=== PATIENT | male | born 1965 | race Two or more races ===

== ENCOUNTER 2024-04-09 18:28 | Inpatient (IN) | payer OTHER ==
[~2024-04-09] VITALS: Ht 172.7 cm; Wt 70.8 kg
[2024-04-09] MEDS ORDERED: ZESTRIL10 M1 PO (19:42)
[2024-04-09] MEDS ORDERED: TAMS0.4C PO (19:42)
[2024-04-09 20:46] LABS: HEMATOCRIT 28.7 % (39.0-48.0); HEMOGLOBIN 9.6 g/dL (13-16.00); MEAN CELL VOLUME 90.5 fL (80.0-100.00); MEAN CORPUSCULAR HEMOGLOBIN 30.4 pg (27.00-32.0); MEAN CORPUSCULAR HGB CONC 33.6 g/dl (32.0-36.0); PLATELET COUNT 323 K/uL (150-450); RED BLOOD COUNT 3.17 M/uL (4.00-6.00); RED CELL DISTRIBUTION WIDTH 19.1 % (11.5-14.5)
[2024-04-09 20:48] LABS: ERYTHROCYTE SEDIMENTATION RATE > 130 mm/hr
[2024-04-09 21:15] LABS: ALBUMIN 2.4 gm/dL (3.4-5.0); BILIRUBIN TOTAL 0.18 mg/dL (0.3-1.2); CALCIUM 9.2 mg/dL (8.5-10.1); CREATININE SERUM 0.96 mg/dL (0.70-1.30); GFR 79.9; POTASSIUM 3.52 mEq/L (3.5-5.1)
[2024-04-09 21:16] LABS: INR 1.08; PROTHROMBIN TIME 11.3 SECONDS (9.0-11.5)
[2024-04-09 21:19] LABS: PARTIAL THROMBOPLASTIN TIME 53.1 SECONDS (22.0-34.0)
[2024-04-09 21:21] LABS: C-REACTIVE PROTEIN 0.56 MG/DL (0.00-0.29); GLOBULINA 8.7 G/DL (2.4-3.5); TOTAL PROTEIN 11.1 gm/dL (6.4-8.2)
[2024-04-10] MEDS ORDERED: CEFTRIAXONE SODIUM 2,000 MG VIAL IV ONE (01:15)
[2024-04-10] MEDS ORDERED: AMOXICILLIN/POTASSIUM CLAV 875-125 TABLET PO SCH (01:19)
[2024-04-10] MEDS ORDERED: ACETAMINOPHEN WITH CODEINE 1 UDTAB TABLET PO ONE ×2 (02:00→11:30)
[2024-04-10] MEDS ORDERED: CEFTRIAXONE SODIUM 1,000 MG VIAL ONE (02:29)
[2024-04-10] MEDS ORDERED: FAMOTIDINE/PF 20 MG in 0.9 % SODIUM CHLORIDE 100 ML IV SCH (17:00)
[2024-04-10] MEDS ORDERED: SODIUM CHLORIDE 0.45 % 1,000 ML IV SCH (17:00)
[2024-04-10] MEDS ORDERED: PIPERACILLIN/TAZOBACTAM SODIUM 3.375 GM in 0.9 % SODIUM CHLORIDE 100 ML IV SCH (18:00)
[2024-04-10 20:34] LABS: INR 1.08; PROTHROMBIN TIME 11.3 SECONDS (9.0-11.5)
[2024-04-10 20:58] LABS: PARTIAL THROMBOPLASTIN TIME 47.1 SECONDS (22.0-34.0)
[2024-04-10] MEDS ORDERED: VANCOMYCIN HCL 1,000 MG VIAL IV SCH (21:07)
[2024-04-10] MEDS ORDERED: ENALAPRILAT DIHYDRATE 1.25 MG/ML VIAL IV PRN (22:15)
[2024-04-10] MEDS ORDERED: ACETAMINOPHEN 500 MG GEL..CAP PO PRN (22:15)
[2024-04-11] MEDS ORDERED: ACETAMINOPHEN WITH CODEINE 1 UDTAB TABLET PO PRN (11:30)
[2024-04-11] MEDS ORDERED: LISINOPRIL 10 MG TABLET PO SCH (17:00)
[2024-04-13 14:40] LABS: HEMATOCRIT 24.8 % (39.0-48.0); MEAN CELL VOLUME 91.7 fL (80.0-100.00); MEAN CORPUSCULAR HGB CONC 32.8 g/dl (32.0-36.0); PLATELET COUNT 301 K/uL (150-450); RED CELL DISTRIBUTION WIDTH 18.7 % (11.5-14.5)
[2024-04-13 14:41] LABS: HEMOGLOBIN 8.1 g/dL (13-16.00)
[2024-04-13 15:19] LABS: ALBUMIN 1.9 gm/dL (3.4-5.0); BILIRUBIN TOTAL 0.32 mg/dL (0.3-1.2); CALCIUM 9.6 mg/dL (8.5-10.1); CREATININE SERUM 0.96 mg/dL (0.70-1.30); GFR 79.9; GLOBULINA 6.7 G/DL (2.4-3.5); TOTAL PROTEIN 8.6 gm/dL (6.4-8.2)
[2024-04-13] MEDS ORDERED: VANCOMYCIN HCL 1,000 MG VIAL IR ONE ×2 (20:15→20:30)
[2024-04-15 13:35] LABS: HEMATOCRIT 26.8 % (39.0-48.0); MEAN CELL VOLUME 89.3 fL (80.0-100.00); MEAN CORPUSCULAR HEMOGLOBIN 29.9 pg (27.00-32.0); MEAN CORPUSCULAR HGB CONC 33.5 g/dl (32.0-36.0); PLATELET COUNT 295 K/uL (150-450); RED BLOOD COUNT 3.01 M/uL (4.00-6.00); RED CELL DISTRIBUTION WIDTH 17.3 % (11.5-14.5)
[2024-04-17 13:55] LABS: ALBUMIN 1.6 gm/dL (3.4-5.0); BILIRUBIN TOTAL 0.21 mg/dL (0.3-1.2); CREATININE SERUM 0.86 mg/dL (0.70-1.30); GFR 90.71; GLOBULINA 5.5 G/DL (2.4-3.5); POTASSIUM 4.04 mEq/L (3.5-5.1); TOTAL PROTEIN 7.1 gm/dL (6.4-8.2)
[2024-04-17 14:23] LABS: MEAN CELL VOLUME 92.2 fL (80.0-100.00); MEAN CORPUSCULAR HGB CONC 33.9 g/dl (32.0-36.0); PLATELET COUNT 291 K/uL (150-450); RED BLOOD COUNT 1.69 M/uL (4.00-6.00); RED CELL DISTRIBUTION WIDTH 16.6 % (11.5-14.5)
[2024-04-17 14:42] LABS: HEMATOCRIT 15.6 % (39.0-48.0); HEMOGLOBIN 5.3 g/dL (13-16.00); MEAN CORPUSCULAR HEMOGLOBIN 31.3 pg (27.00-32.0)
[2024-04-18] MEDS ORDERED: TRANEXAMIC ACID 1,000 MG in 0.9 % SODIUM CHLORIDE 100 ML IV NR (11:30)
[2024-04-18] MEDS ORDERED: 0.9 % SODIUM CHLORIDE 1,000 ML IV SCH (11:30)
[2024-04-18 12:43] LABS: MEAN CELL VOLUME 88.7 fL (80.0-100.00); MEAN CORPUSCULAR HGB CONC 33.5 g/dl (32.0-36.0); PLATELET COUNT 244 K/uL (150-450); RED BLOOD COUNT 1.78 M/uL (4.00-6.00)
[2024-04-18 12:45] LABS: HEMATOCRIT 15.8 % (39.0-48.0); MEAN CORPUSCULAR HEMOGLOBIN 29.7 pg (27.00-32.0)
[2024-04-18 12:47] LABS: INR 1.05
[2024-04-18 12:49] LABS: COL EPI 119 SECONDS (82-175)
[2024-04-18 12:49] LABS: MONONUCLEAR 29 %; POLYMORPHONUCLEAR 71 %; SYNOVIAL FLUID APPEARANCE TURBID; SYNOVIAL FLUID COLOR RED-BLOODY
[2024-04-18 12:50] LABS: PARTIAL THROMBOPLASTIN TIME 41.9 SECONDS (22.0-34.0)
[2024-04-18 12:52] LABS: ERYTHROCYTE SEDIMENTATION RATE 90 mm/hr
[2024-04-18 12:54] LABS: HEMOGLOBIN 5.3 g/dL (13-16.00)
[2024-04-18 14:40] LABS: C-REACTIVE PROTEIN 0.52 MG/DL (0.00-0.29)
[2024-04-18] MEDS ORDERED: PROMETHAZINE HCL 50 MG/ML AMPUL IM PRN (18:15)
[2024-04-18] MEDS ORDERED: MEPERIDINE HCL/PF 50 MG/ML VIAL IM PRN (18:15)
[2024-04-18] MEDS ORDERED: VANCOMYCIN HCL 1,000 MG VIAL IR ONE (22:30)
[2024-04-18] MEDS ORDERED: TRANEXAMIC ACID 100MG/1ML (1000MG) AMPUL IV ONE (22:30)
[2024-04-19] MEDS ORDERED: TAMSULOSIN HCL 0.4 MG CAP PO SCH (09:00)
[2024-04-19 09:10] LABS: HEMATOCRIT 26.4 % (39.0-48.0); MEAN CORPUSCULAR HEMOGLOBIN 29.3 pg (27.00-32.0); PLATELET COUNT 225 K/uL (150-450); RED BLOOD COUNT 3.07 M/uL (4.00-6.00); RED CELL DISTRIBUTION WIDTH 16.1 % (11.5-14.5)
[2024-04-19 09:53] LABS: ALBUMIN 1.7 gm/dL (3.4-5.0); BILIRUBIN TOTAL 0.42 mg/dL (0.3-1.2); CREATININE SERUM 0.87 mg/dL (0.70-1.30); GFR 89.51; GLOBULINA 5.4 G/DL (2.4-3.5); POTASSIUM 3.51 mEq/L (3.5-5.1); TOTAL PROTEIN 7.1 gm/dL (6.4-8.2)
[2024-04-19 09:57] LABS: INR 1.04; PROTHROMBIN TIME 10.9 SECONDS (9.0-11.5)
[2024-04-19 10:00] LABS: PARTIAL THROMBOPLASTIN TIME 42.4 SECONDS (22.0-34.0)
[2024-04-19] MEDS ORDERED: VITAMIN B COMPLEX/LYSINE 1 ML ML PO SCH (21:00)
[2024-04-20] MEDS ORDERED: LOSARTAN POTASSIUM 50 MG TABLET PO SCH (08:09)
[2024-04-20] MEDS ORDERED: AMLODIPINE BESYLATE 5 MG TABLET PO SCH (09:00)
[2024-04-20 13:07] LABS: kappa lambda r 197.85 (0.26-1.65); kappa light 1464.1 mg/L (3.3-19.4); lambda light 7.4 mg/L (5.7-26.3)
[2024-04-21 07:07] LABS: BETA-2-MICROGLOBULINA 2.3 mg/L (0.6-2.4)
[2024-04-21 11:08] LABS: a:g ratio 0.6 (0.7-1.7); alpha 1 g 0.3 g/dL (0.0-0.4); alpha 2 0.5 g/dL (0.4-1.0); beta g 3.1 g/dL (0.7-1.3); gamma g 0.1 g/dL (0.4-1.8); m spike 2.3 g/dL (Not Observed); prot total 6.2 g/dL (6.0-8.5)
[2024-04-22 07:20] LABS: MEAN CELL VOLUME 89.7 fL (80.0-100.00); MEAN CORPUSCULAR HGB CONC 34.7 g/dl (32.0-36.0); PLATELET COUNT 349 K/uL (150-450); RED BLOOD COUNT 2.35 M/uL (4.00-6.00); RED CELL DISTRIBUTION WIDTH 16.8 % (11.5-14.5)
[2024-04-22 07:32] LABS: HEMATOCRIT 21.1 % (39.0-48.0); HEMOGLOBIN 7.3 g/dL (13-16.00)
[2024-04-22] MEDS ORDERED: FUROsemide 20 MG/2 ML VIAL IV SCH (09:00)
[2024-04-22] MEDS ORDERED: HYDROCORTISONE SODIUM SUCC/PF 100 MG VIAL IV NR (10:30)
[2024-04-23 03:29] LABS: HEMATOCRIT 24.8 % (39.0-48.0); MEAN CELL VOLUME 88.5 fL (80.0-100.00); PLATELET COUNT 410 K/uL (150-450); RED CELL DISTRIBUTION WIDTH 16.1 % (11.5-14.5)
[2024-04-23 03:32] LABS: HEMOGLOBIN 8.4 g/dL (13-16.00)
[2024-04-23 03:44] LABS: INR 1.03; PROTHROMBIN TIME 10.8 SECONDS (9.0-11.5)
[2024-04-23 03:47] LABS: PARTIAL THROMBOPLASTIN TIME 43.3 SECONDS (22.0-34.0)
[2024-04-23 04:01] LABS: ALBUMIN 1.6 gm/dL (3.4-5.0); BILIRUBIN TOTAL 0.17 mg/dL (0.3-1.2); CALCIUM 9.2 mg/dL (8.5-10.1); CREATININE SERUM 0.76 mg/dL (0.70-1.30); GFR 104.62; GLOBULINA 6.5 G/DL (2.4-3.5); POTASSIUM 3.78 mEq/L (3.5-5.1); TOTAL PROTEIN 8.1 gm/dL (6.4-8.2)
[2024-04-23] MEDS ORDERED: AMINOCAPROIC ACID 250 MG/ML VIAL IV NR (10:00)
[2024-04-23 14:07] LABS: HEMATOCRIT 27.8 % (39.0-48.0); HEMOGLOBIN 9.6 g/dL (13-16.00); MEAN CELL VOLUME 86.9 fL (80.0-100.00); MEAN CORPUSCULAR HGB CONC 34.6 g/dl (32.0-36.0); PLATELET COUNT 408 K/uL (150-450); RED CELL DISTRIBUTION WIDTH 15.8 % (11.5-14.5)
[2024-04-23 20:21] LABS: PH,URINE 7.5 (5.0-8.0); URINE APPEARANCE Turbid; URINE BILIRRUBIN Negative (NEGATIVE); URINE BLOOD Moderate; URINE COLOR Yellow; URINE GLUCOSE Negative (NEGATIVE); URINE KETONE Trace (NEGATIVE); URINE LEUKOCYTE Negative; URINE NITRATE Negative
[2024-04-23 20:25] LABS: URINE BACTERIA 50.3 uL (0.0-1933); URINE EPITHELIAL CELLS 2.1 uL (0.0-38.8); URINE RBC 261.5 uL (0.0-20.8); URINE WBC 12.6 uL (0.0-23.2)
[2024-04-23 20:56] LABS: URINE CAST 0.45 uL (0.0-1.40); URINE PROTEIN 300 (NEGATIVE)
[2024-04-24 08:22] LABS: HEMATOCRIT 27.8 % (39.0-48.0); MEAN CELL VOLUME 88.2 fL (80.0-100.00); MEAN CORPUSCULAR HEMOGLOBIN 30.4 pg (27.00-32.0); MEAN CORPUSCULAR HGB CONC 34.5 g/dl (32.0-36.0); PLATELET COUNT 418 K/uL (150-450); RED BLOOD COUNT 3.15 M/uL (4.00-6.00); RED CELL DISTRIBUTION WIDTH 15.7 % (11.5-14.5)
[2024-04-24 08:31] LABS: HEMOGLOBIN 9.6 g/dL (13-16.00)
[2024-04-24 08:40] LABS: INR 1.01; PARTIAL THROMBOPLASTIN TIME 45.5 SECONDS (22.0-34.0); PROTHROMBIN TIME 10.6 SECONDS (9.0-11.5)
[2024-04-24] MEDS ORDERED: GABAPENTIN 100 MG CAPSULE PO SCH (12:00)
[2024-04-24] MEDS ORDERED: FAMOTIDINE/PF 20 MG/2 ML VIAL IV PUSH SCH (21:00)
[2024-04-24 22:30] LABS: HEMATOCRIT 27.2 % (39.0-48.0); HEMOGLOBIN 9.2 g/dL (13-16.00); MEAN CELL VOLUME 88.6 fL (80.0-100.00); MEAN CORPUSCULAR HEMOGLOBIN 30.1 pg (27.00-32.0); PLATELET COUNT 458 K/uL (150-450); RED BLOOD COUNT 3.07 M/uL (4.00-6.00); RED CELL DISTRIBUTION WIDTH 15.3 % (11.5-14.5)
[2024-04-26 08:16] LABS: INR 1.07; PROTHROMBIN TIME 11.2 SECONDS (9.0-11.5)
[2024-04-26] MEDS ORDERED: FAMOtidine 20 MG TABLET PO SCH (21:00)
[2024-04-27 07:09] LABS: IMMUNOGLOBULIN A 74 mg/dL (90-386); IMMUNOGLOBULIN G 3686 mg/dL (603-1613); IMMUNOGLOBULIN M 19 mg/dL (20-172)
[2024-04-27 16:42] LABS: MEAN CELL VOLUME 88.9 fL (80.0-100.00); MEAN CORPUSCULAR HEMOGLOBIN 30.6 pg (27.00-32.0); MEAN CORPUSCULAR HGB CONC 34.5 g/dl (32.0-36.0); PLATELET COUNT 444 K/uL (150-450); RED BLOOD COUNT 2.58 M/uL (4.00-6.00); RED CELL DISTRIBUTION WIDTH 15.4 % (11.5-14.5)
[2024-04-27 16:46] LABS: HEMOGLOBIN 7.9 g/dL (13-16.00)
[2024-04-28] MEDS ORDERED: AMINOCAPROIC ACID 250 MG/ML VIAL IV STA (19:13)
[2024-04-29 05:28] LABS: HEMATOCRIT 33.1 % (39.0-48.0); MEAN CELL VOLUME 89.7 fL (80.0-100.00); MEAN CORPUSCULAR HGB CONC 34.8 g/dl (32.0-36.0); PLATELET COUNT 425 K/uL (150-450); RED BLOOD COUNT 3.69 M/uL (4.00-6.00)
[2024-04-29 05:31] LABS: HEMOGLOBIN 11.5 g/dL (13-16.00); MEAN CORPUSCULAR HEMOGLOBIN 31.1 pg (27.00-32.0)
[2024-04-29] MEDS ORDERED: AMINOCAPROIC ACID 250 MG/ML VIAL IV SCH (09:00)
[2024-04-29] MEDS ORDERED: DESMOPRESSIN ACETATE 40 MCG/10 ML ML IV NR (12:00)
[2024-04-29 19:05] LABS: ANTI CARDIO IGG < 9 GPL U/mL (0-14); ANTI CARDIO IGM < 9 MPL U/mL (0-12)
[2024-04-29] MEDS ORDERED: AMINOCAPROIC ACID 20 MG/ML ML IV SCH (21:00)
[2024-04-30] MEDS ORDERED: ACETAMINOPHEN 500 MG GEL..CAP PO PRN (02:15)
[2024-04-30 08:20] LABS: INR 1.09; PROTHROMBIN TIME 11.4 SECONDS (9.0-11.5)
[2024-04-30 08:26] LABS: PARTIAL THROMBOPLASTIN TIME 48.1 SECONDS (22.0-34.0)
[2024-04-30 08:27] LABS: HEMATOCRIT 31.8 % (39.0-48.0); HEMOGLOBIN 11.1 g/dL (13-16.00); MEAN CELL VOLUME 90.1 fL (80.0-100.00); MEAN CORPUSCULAR HEMOGLOBIN 31.4 pg (27.00-32.0); MEAN CORPUSCULAR HGB CONC 34.9 g/dl (32.0-36.0); PLATELET COUNT 379 K/uL (150-450); RED BLOOD COUNT 3.53 M/uL (4.00-6.00); RED CELL DISTRIBUTION WIDTH 15.3 % (11.5-14.5)
[2024-04-30] MEDS ORDERED: HYDROGEN PEROXIDE 473 ML BOTTLE TOP ONE (13:06)
[2024-04-30 15:07] LABS: FACTOR VIII ACTIVITY 136 % (56-140)
[2024-04-30] MEDS ORDERED: ANTIHEMOPHILIC FACTOR IV NR (17:00)
[2024-04-30] MEDS ORDERED: [UNRECOGNIZED DRUG - OTHER] IV NR (17:00)
[2024-04-30 17:11] LABS: dRVVT 49.1 sec (0.0-47.0); interp Comment: (.); ptt-la 85.3 sec (0.0-43.5)
[2024-05-02 08:11] LABS: HEMATOCRIT 34.6 % (39.0-48.0); HEMOGLOBIN 11.9 g/dL (13-16.00); MEAN CELL VOLUME 88.8 fL (80.0-100.00); MEAN CORPUSCULAR HEMOGLOBIN 30.6 pg (27.00-32.0); MEAN CORPUSCULAR HGB CONC 34.4 g/dl (32.0-36.0); PLATELET COUNT 403 K/uL (150-450); RED CELL DISTRIBUTION WIDTH 15.4 % (11.5-14.5)
[2024-05-03] MEDS ORDERED: DESMOPRESSIN ACETATE 4 MCG/ML AMPUL IV ONE (07:15)
[2024-05-03 12:20] LABS: HEMATOCRIT 33.8 % (39.0-48.0); HEMOGLOBIN 11.6 g/dL (13-16.00); MEAN CELL VOLUME 90.3 fL (80.0-100.00); MEAN CORPUSCULAR HEMOGLOBIN 31.1 pg (27.00-32.0); MEAN CORPUSCULAR HGB CONC 34.4 g/dl (32.0-36.0); PLATELET COUNT 373 K/uL (150-450); RED BLOOD COUNT 3.74 M/uL (4.00-6.00); RED CELL DISTRIBUTION WIDTH 15.7 % (11.5-14.5)
[2024-05-03] MEDS ORDERED: DOXYCYCLINE HYCLATE 100 MG in 0.9 % SODIUM CHLORIDE 250 ML IV SCH (21:00)
[2024-05-05] MEDS ORDERED: DIPHENHYDRAMINE HCL 50 MG/ML VIAL 1ML IV SCH (07:30)
[2024-05-05] MEDS ORDERED: METHYLPREDNISOLONE SOD SUCC 40 MG VIAL IV SCH (07:30)
[2024-05-05] MEDS ORDERED: ACETAMINOPHEN WITH CODEINE 1 UDTAB TABLET PO PRN (18:45)
[2024-05-05 20:29] LABS: HEMATOCRIT 31.2 % (39.0-48.0); HEMOGLOBIN 10.8 g/dL (13-16.00); MEAN CELL VOLUME 89.2 fL (80.0-100.00); MEAN CORPUSCULAR HEMOGLOBIN 30.8 pg (27.00-32.0); MEAN CORPUSCULAR HGB CONC 34.5 g/dl (32.0-36.0); PLATELET COUNT 334 K/uL (150-450); RED CELL DISTRIBUTION WIDTH 15.3 % (11.5-14.5)
[2024-05-05 20:45] LABS: INR 1.11; PROTHROMBIN TIME 11.6 SECONDS (9.0-11.5)
[2024-05-05 20:50] LABS: PARTIAL THROMBOPLASTIN TIME 48.4 SECONDS (22.0-34.0)
[2024-05-05 21:09] LABS: CREATININE SERUM 1.08 mg/dL (0.70-1.30); GFR 69.74; POTASSIUM 3.35 mEq/L (3.5-5.1)
[2024-05-06] MEDS ORDERED: AMLODIPINE BESYLATE 10 MG TABLET PO SCH (09:00)
[2024-05-07] MEDS ORDERED: ACETAMINOPHEN WITH CODEINE 1 UDTAB TABLET PO PRN (19:15)
[2024-05-08 08:26] LABS: HEMATOCRIT 32.7 % (39.0-48.0); HEMOGLOBIN 11.3 g/dL (13-16.00); MEAN CELL VOLUME 91.9 fL (80.0-100.00); MEAN CORPUSCULAR HEMOGLOBIN 31.6 pg (27.00-32.0); MEAN CORPUSCULAR HGB CONC 34.4 g/dl (32.0-36.0); PLATELET COUNT 314 K/uL (150-450); RED BLOOD COUNT 3.56 M/uL (4.00-6.00); RED CELL DISTRIBUTION WIDTH 15.1 % (11.5-14.5)
[2024-05-08 08:48] LABS: ALBUMIN 2.7 gm/dL (3.4-5.0); BILIRUBIN TOTAL 0.37 mg/dL (0.3-1.2); CALCIUM 10.6 mg/dL (8.5-10.1); CREATININE SERUM 0.9 mg/dL (0.70-1.30); GFR 86.07; GLOBULINA 7.6 G/DL (2.4-3.5); POTASSIUM 4.08 mEq/L (3.5-5.1)
[2024-05-08 09:03] LABS: TOTAL PROTEIN 10.3 gm/dL (6.4-8.2)
[2024-05-09] MEDS ORDERED: HYDROCORTISONE 1% 29 G TUBE TOP SCH (13:22)
[2024-05-10] MEDS ORDERED: ACETAMINOPHEN WITH CODEINE 1 UDTAB TABLET PO SCH (18:30)
[2024-05-11 07:45] LABS: HEMATOCRIT 31.2 % (39.0-48.0); HEMOGLOBIN 10.6 g/dL (13-16.00); MEAN CELL VOLUME 90.4 fL (80.0-100.00); MEAN CORPUSCULAR HEMOGLOBIN 30.7 pg (27.00-32.0); PLATELET COUNT 278 K/uL (150-450); RED BLOOD COUNT 3.45 M/uL (4.00-6.00); RED CELL DISTRIBUTION WIDTH 15.6 % (11.5-14.5)
[2024-05-11 08:16] LABS: INR 1.12; PROTHROMBIN TIME 11.7 SECONDS (9.0-11.5)
[2024-05-11 08:26] LABS: PARTIAL THROMBOPLASTIN TIME 55.1 SECONDS (22.0-34.0)
[2024-05-11] MEDS ORDERED: CYANOCOBALAMIN (VITAMIN B-12) 1,000 MCG TABLET PO SCH (11:11)
[2024-05-11] MEDS ORDERED: ONDANSETRON HCL 2 MG/ML VIAL IV NR (18:00)
[2024-05-11] MEDS ORDERED: VinCRIStine SULFATE 2 MG/2 ML VIAL IV NR (18:00)
[2024-05-11] MEDS ORDERED: DEXAMETHASONE SODIUM PHOSPHATE 4 MG/ML VIAL IV NR (18:00)
[2024-05-11] MEDS ORDERED: LACTULOSE 20 G/30 ML BLIST.PACK PO STA (18:51)
[2024-05-11] MEDS ORDERED: GLYCERIN 2.1 GM SUPP.RECT RECTAL STA (18:52)
[2024-05-11] MEDS ORDERED: [UNRECOGNIZED DRUG - OTHER] IV NR (19:00)
[2024-05-12] MEDS ORDERED: LACTULOSE 20 G/30 ML BLIST.PACK PO ONE (08:00)
[2024-05-12] MEDS ORDERED: GLYCERIN 2.1 GM SUPP.RECT RECTAL ONE ×2 (08:00→10:15)
[2024-05-12] MEDS ORDERED: LACTULOSE 20 G/30 ML BLIST.PACK PO NR (10:15)
[2024-05-13 08:39] LABS: HEMATOCRIT 27.9 % (39.0-48.0); HEMOGLOBIN 9.5 g/dL (13-16.00); MEAN CELL VOLUME 89.5 fL (80.0-100.00); MEAN CORPUSCULAR HEMOGLOBIN 30.4 pg (27.00-32.0); MEAN CORPUSCULAR HGB CONC 33.9 g/dl (32.0-36.0); PLATELET COUNT 273 K/uL (150-450); RED BLOOD COUNT 3.12 M/uL (4.00-6.00); RED CELL DISTRIBUTION WIDTH 14.7 % (11.5-14.5)
[2024-05-13] MEDS ORDERED: ONDANSETRON HCL 2 MG/ML VIAL IV PRN (20:30)
[2024-05-13] MEDS ORDERED: ACETAMINOPHEN 500 MG GEL..CAP PO PRN (23:15)
== END 2024-05-14 15:19 | disposition home or self-care (01) | DRG 602 ==
LOC: ER 18:29 → MEDI 04-10 17:53 → ICU 04-18 20:27 → MEDJ 04-22 17:12
PROVIDERS: Emergency Medicine; General Practice; Internal Medicine; Internal Medicine Hematology & Oncology; Orthopaedic Surgery; Student in an Organized Health Care Education/Training Program; ADMIT Internal Medicine; ATTEND Internal Medicine
PROC: BP3 Imaging, Non-Axial Upper Bones, Magnetic Resonance Imaging (MRI) (ICD-10-PCS; 2024-04-10)
PROC: 30243N1 Transfusion of Nonautologous Red Blood Cells into Central Vein, Percutaneous Approach (ICD-10-PCS; 2024-04-14)
PROC: 0H9BX0Z Drainage of Right Upper Arm Skin with Drainage Device, External Approach (ICD-10-PCS; principal; 2024-04-17)
PROC: 0HBDXZZ Excision of Right Lower Arm Skin, External Approach (ICD-10-PCS; 2024-04-18)
PROC: BP2 Imaging, Non-Axial Upper Bones, Computerized Tomography (CT Scan) (ICD-10-PCS; 2024-04-19)
PROC: 02HV33Z Insertion of Infusion Device into Superior Vena Cava, Percutaneous Approach (ICD-10-PCS; 2024-04-19)
PROC: 07DR3ZX Extraction of Iliac Bone Marrow, Percutaneous Approach, Diagnostic (ICD-10-PCS; 2024-05-02)
DX: L03.113 Cellulitis of right upper limb (principal); A48.0 Gas gangrene; M60.031 Infective myositis, right forearm; D62 Acute posthemorrhagic anemia; C90.00 Multiple myeloma not having achieved remission; B99.9 Unspecified infectious disease; L02.413 Cutaneous abscess of right upper limb; R33.9 Retention of urine, unspecified; S50.11XA Contusion of right forearm, initial encounter; D72.819 Decreased white blood cell count, unspecified; D47.2 Monoclonal gammopathy; S51.859A Open bite of unspecified forearm, initial encounter; W55.01XA Bitten by cat, initial encounter
CPT/HCPCS: 73206; 73218

== ENCOUNTER → 2024-05-18 09:27 | Outpatient (CLI) | payer OTHER ==
[2024-05-18 07:25] LABS: URINE APPEARANCE Cloudy; URINE BILIRRUBIN Negative (NEGATIVE); URINE BLOOD Large; URINE COLOR Yellow; URINE GLUCOSE Negative (NEGATIVE); URINE KETONE Trace (NEGATIVE); URINE LEUKOCYTE Trace; URINE NITRATE Negative; URINE PROTEIN 30 (NEGATIVE)
[2024-05-18 07:29] LABS: HEMATOCRIT 27.5 % (39.0-48.0); HEMOGLOBIN 9.3 g/dL (13-16.00); MEAN CELL VOLUME 89.6 fL (80.0-100.00); MEAN CORPUSCULAR HEMOGLOBIN 30.2 pg (27.00-32.0); PLATELET COUNT 283 K/uL (150-450); RED BLOOD COUNT 3.07 M/uL (4.00-6.00); RED CELL DISTRIBUTION WIDTH 15.3 % (11.5-14.5); URINE BACTERIA 13.8 uL (0.0-1933); URINE EPITHELIAL CELLS 7.1 uL (0.0-38.8); URINE RBC 1104.5 uL (0.0-20.8)
[2024-05-18 07:36] LABS: URINE CAST 0.45 uL (0.0-1.40)
[2024-05-18 07:53] LABS: INR 1.05
[2024-05-18 07:57] LABS: PARTIAL THROMBOPLASTIN TIME 47.3 SECONDS (22.0-34.0)
[2024-05-18 08:44] LABS: ALBUMIN 2.4 gm/dL (3.4-5.0); BILIRUBIN TOTAL 0.29 mg/dL (0.3-1.2); CALCIUM 9.6 mg/dL (8.5-10.1); CREATININE SERUM 0.85 mg/dL (0.70-1.30); GFR 91.94; GLOBULINA 7.3 G/DL (2.4-3.5); POTASSIUM 3.63 mEq/L (3.5-5.1); TOTAL PROTEIN 9.7 gm/dL (6.4-8.2)
[~2024-05-18 09:27] MED LIST: TAMS0.4C PO; ZESTRIL10 M1 PO
== END | disposition home or self-care (01) ==
LOC: LAB 05-17 15:48
PROVIDERS: ATTEND Orthopaedic Surgery
DX: D64.9 Anemia, unspecified (principal); E88.89 Other specified metabolic disorders; D68.8 Other specified coagulation defects; N39.0 Urinary tract infection, site not specified; Z22.322 Carrier or suspected carrier of Methicillin resistant Staphylococcus aureus; E11.9 Type 2 diabetes mellitus without complications; Z76.89 Persons encountering health services in other specified circumstances; I10 Essential (primary) hypertension

== ENCOUNTER 2024-05-29 18:09 | Inpatient (IN) | payer OTHER ==
[~2024-05-29] VITALS: Ht 172.7 cm; Wt 86.2 kg
--- NOTE | 2024-05-29 18:17 | NUR ---
PACIENTE ALERTA Y ORIENTADO X 3. REFIERE SANGRADO CON COAGULOS EN LA ORINA DESDE TABATHA. REFIERE SER PACIENTE DE CA
[2024-05-29] MEDS ORDERED: AMICAR500 MG (18:21)
[2024-05-29] MEDS ORDERED: COZAAR50 MG PO (18:21)
[2024-05-29] MEDS ORDERED: NEURONTIN300 MG PO (18:21)
[2024-05-29] MEDS ORDERED: ZESTRIL10 M1 (18:23)
[2024-05-29] MEDS ORDERED: LEVOFLOXACIN500 MG PO (18:23)
--- NOTE | 2024-05-29 18:53 | NUR ---
SE LE ORIENTA A PACIENTE SOBRE LA ORDEN MEDICA, REFIERE ENTENDER LAS MISMAS. SE CANALIZA Y SE LE COLOCA H/L Y SE LE MARIA C LAS MUETRAS CK LA ORDEN MEDICA.
[2024-05-29 19:28] LABS: MEAN CELL VOLUME 89.8 fL (80.0-100.00); MEAN CORPUSCULAR HGB CONC 33.7 g/dl (32.0-36.0); PLATELET COUNT 657 K/uL (150-450); RED BLOOD COUNT 2.62 M/uL (4.00-6.00); RED CELL DISTRIBUTION WIDTH 15.7 % (11.5-14.5)
[2024-05-29 19:32] LABS: HEMATOCRIT 23.5 % (39.0-48.0); HEMOGLOBIN 7.9 g/dL (13-16.00); MEAN CORPUSCULAR HEMOGLOBIN 30.1 pg (27.00-32.0)
[2024-05-29 19:48] LABS: URINE APPEARANCE Cloudy; URINE BILIRRUBIN Small (NEGATIVE); URINE BLOOD Large; URINE COLOR Red; URINE GLUCOSE Negative (NEGATIVE); URINE KETONE Negative (NEGATIVE); URINE LEUKOCYTE Small; URINE NITRATE Negative; URINE UROBILINOGEN 0.2 E.U./dl
[2024-05-29 19:49] LABS: CALCIUM 9.6 mg/dL (8.5-10.1); CREATININE SERUM 0.91 mg/dL (0.70-1.30); GFR 84.98; POTASSIUM 3.9 mEq/L (3.5-5.1)
[2024-05-29 19:51] LABS: URINE BACTERIA 944.9 uL (0.0-1933); URINE WBC 24.5 uL (0.0-23.2)
[2024-05-29 20:30] LABS: INR 1.09; PROTHROMBIN TIME 11.8 SECONDS (9.0-11.5)
[2024-05-29 20:35] LABS: PARTIAL THROMBOPLASTIN TIME 54.4 SECONDS (22.0-34.0)
[2024-05-29] MEDS ORDERED: AMINOCAPROIC ACID 250 MG/ML VIAL IV STA (20:45)
[2024-05-29 20:53] LABS: URINE EPITHELIAL CELLS 0.4 uL (0.0-38.8); URINE PROTEIN 100 (NEGATIVE); URINE RBC > 10558.9 uL (0.0-20.8)
--- NOTE | 2024-05-29 21:12 | NUR ---
PACIENTE REEVALADO POR MD PITTMANIEN ORDENA NUEVO TRATAMIENTO MEDICO, SE LE ORIENTA A PACIENTE SOBRE EL MISMO Y VERBALIZA ENTENDER, SE LE CANALIZA A PACIENTE X2 EN BRAZO NILA CON ANGIOS #20, AMBOS SE ENCUENTRAN PATENTES, LIBRES DE EDEMA Y ERITEMA. SE LE MARIA C PERMISO DE TRANSFUCION Y SE ADJUNTA A RECORD DE PACIENTE, SE MARIA C TUBOS PILOTOS PARA PRBC'S Y SE ENVIA REQUISION A LABORATORIO, PERSONAL DE LABORATORIO LLAMA A BANCO DE MANAN Y MR Shyann LINO REFIERE QUE PACIENTE TIENE RECORD PREVIO.
[2024-05-29] MEDS ORDERED: CEFTRIAXONE SODIUM 2,000 MG VIAL IV STA (22:58)
[2024-05-29] MEDS ORDERED: CEFTRIAXONE SODIUM 2,000 MG VIAL ONE (23:21)
[2024-05-29] MEDS ORDERED: ORPHENADRINE CITRATE 100 MG TABLET PO STA (23:34)
--- NOTE | 2024-05-30 01:25 | NUR ---
SE RECIBE A PTE DE TURNO ANTERIOR. PTE ALERTA Y ORIENTADO X3. SE OBSERVA VENOPUNCIONES X2 EN MANO RT, PATENTE. SE ADMNISTRA MEDICAMENTO CK ORDEN MEDICA, NO SE OBSERVA REACCION ADVERSA AL MOMENTO.
--- NOTE | 2024-05-30 01:28 | NUR ---
SE PROCURA INSERTAR CRUZ THREE WAY BAJO MEDIDAS ASEPTICAS Y ESTERILES SIN EXITO. YA QUE CATETER DISPONIBLE DISPONIBLE AL MOMENTO ES MUY BRYSON. SE COLOCA CRUZ #22 REGULAR SIN PROBLEMA. SE OBSERVA HEMATURIA CON COAGULOS DRENANDO APPROXIMADAMENTE 100ML.
--- NOTE | 2024-05-30 06:54 | NUR ---
SE RECIBE PTE DE TURNO ANTERIOR PTE EN [place] CON BARANDAS ELEVADAS POR MORALES SEGURIDAD Y EN COMPANIA DE FAMILIAR. PTE NO REFIERE TENER DOLOR AL MOMENTO. PENDIENTE A LABORATORIOS.
[2024-05-30] MEDS ORDERED: CEFTRIAXONE SODIUM 1,000 MG in DEXTROSE 5 % IN WATER 100 ML IV SCH (12:24)
[2024-05-30] MEDS ORDERED: 0.9 % SODIUM CHLORIDE 1,000 ML IV SCH (12:30)
[2024-05-30] MEDS ORDERED: CEFTRIAXONE SODIUM 1,000 MG VIAL ONE (13:13)
[2024-05-30 15:25] VITALS: BP 118/73; O2SAT 99
[2024-05-30 16:10] VITALS: BP 136/81; O2SAT 98
[2024-05-30] MEDS ORDERED: ORPHENADRINE CITRATE 100 MG TABLET PO SCH (17:00)
[2024-05-30] MEDS ORDERED: TAMSULOSIN HCL 0.4 MG CAP PO SCH (21:00)
[2024-05-31 00:50] VITALS: BP 140/88; O2SAT 99
[2024-05-31 08:00] VITALS: BP 138/80; O2SAT 100
[2024-05-31 10:00] LABS: HEMATOCRIT 24.4 % (39.0-48.0); MEAN CELL VOLUME 89.9 fL (80.0-100.00); MEAN CORPUSCULAR HGB CONC 34.4 g/dl (32.0-36.0); PLATELET COUNT 449 K/uL (150-450); RED BLOOD COUNT 2.72 M/uL (4.00-6.00); RED CELL DISTRIBUTION WIDTH 15.3 % (11.5-14.5)
[2024-05-31 10:01] LABS: HEMOGLOBIN 8.4 g/dL (13-16.00); MEAN CORPUSCULAR HEMOGLOBIN 30.8 pg (27.00-32.0)
[2024-05-31 10:57] LABS: CALCIUM 8.8 mg/dL (8.5-10.1); CREATININE SERUM 0.87 mg/dL (0.70-1.30); GFR 89.51; MAGNESIUM 2.1 mg/dL (1.8-2.4); PHOSPHOROUS 3.5 mg/dL (2.5-4.9); POTASSIUM 4.62 mEq/L (3.5-5.1); PROSTATIC SPECIFIC ANTIGEN 3.93 NG/ML (0.010-4.00)
[2024-05-31] MEDS ORDERED: METOPROLOL SUCCINATE 25 MG TAB.SR.24H PO SCH (11:27)
[2024-05-31] MEDS ORDERED: MORPHINE SULFATE 4 MG/ML CARTRIDGE IV PRN (15:00)
[2024-05-31 16:00] VITALS: BP 121/72; O2SAT 97
[2024-05-31 23:39] VITALS: BP 125/78; O2SAT 99
[2024-06-01 02:47] LABS: HEMATOCRIT 19.7 % (39.0-48.0); MEAN CELL VOLUME 89.9 fL (80.0-100.00); MEAN CORPUSCULAR HGB CONC 34.3 g/dl (32.0-36.0); PLATELET COUNT 342 K/uL (150-450); RED BLOOD COUNT 2.19 M/uL (4.00-6.00)
[2024-06-01 02:49] LABS: HEMOGLOBIN 6.8 g/dL (13-16.00)
[2024-06-01] MEDS ORDERED: AMINOCAPROIC ACID 250 MG/ML VIAL IV STA (03:11)
[2024-06-01] MEDS ORDERED: AMINOCAPROIC ACID 250 MG/ML VIAL IV ONE (03:24)
[2024-06-01 07:15] LABS: INR 1.1; PROTHROMBIN TIME 11.9 SECONDS (9.0-11.5)
[2024-06-01 08:00] VITALS: BP 130/66; O2SAT 99
[2024-06-01 16:38] VITALS: BP 149/80; O2SAT 97
[2024-06-01] MEDS ORDERED: FAMOTIDINE/PF 20 MG/2 ML VIAL IV PUSH SCH (21:00)
[2024-06-02 00:21] VITALS: BP 149/80; O2SAT 97
[2024-06-02 05:13] LABS: HEMATOCRIT 22.7 % (39.0-48.0); MEAN CELL VOLUME 90.4 fL (80.0-100.00); MEAN CORPUSCULAR HGB CONC 34.3 g/dl (32.0-36.0); PLATELET COUNT 321 K/uL (150-450); RED BLOOD COUNT 2.51 M/uL (4.00-6.00); RED CELL DISTRIBUTION WIDTH 15.2 % (11.5-14.5)
[2024-06-02 05:18] LABS: HEMOGLOBIN 7.8 g/dL (13-16.00)
[2024-06-02 08:00] VITALS: BP 154/82; O2SAT 96
[2024-06-02] MEDS ORDERED: AMINOCAPROIC ACID 250 MG/ML VIAL IV SCH (09:48)
[2024-06-02] MEDS ORDERED: VASOPRESSIN 20 UNITS/ML VIAL IV ONE (10:15)
[2024-06-02] MEDS ORDERED: EPINEPHRINE HCL/PF 1 MG/ML AMPUL IR STA (10:21)
[2024-06-02 14:12] LABS: FIBRINOGEN 559 mg/dL (187.0-446.0)
[2024-06-02 14:22] LABS: COL EPI 90 SECONDS (82-175)
[2024-06-02 16:34] VITALS: BP 126/74; O2SAT 99
[2024-06-02] MEDS ORDERED: FINASTERIDE 5 MG TABLET PO SCH (22:15)
[2024-06-02] MEDS ORDERED: FINASTERIDE 5 MG TABLET PO ONE (22:47)
[2024-06-03 00:44] VITALS: BP 145/84; O2SAT 96
[2024-06-03] MEDS ORDERED: AMLODIPINE BESYLATE 5 MG TABLET PO ONE (07:45)
[2024-06-03] MEDS ORDERED: MORPHINE SULFATE 4 MG/ML VIAL IV PRN (07:45)
[2024-06-03 08:00] VITALS: BP 150/96; O2SAT 98
[2024-06-03] MEDS ORDERED: MORPHINE SULFATE 4 MG/ML CARTRIDGE IV PRN (10:00)
[2024-06-03 13:47] LABS: HEMATOCRIT 27.5 % (39.0-48.0); HEMOGLOBIN 9.1 g/dL (13-16.00); MEAN CELL VOLUME 89.4 fL (80.0-100.00); MEAN CORPUSCULAR HEMOGLOBIN 29.5 pg (27.00-32.0); PLATELET COUNT 295 K/uL (150-450); RED BLOOD COUNT 3.08 M/uL (4.00-6.00); RED CELL DISTRIBUTION WIDTH 16.1 % (11.5-14.5)
[2024-06-03 13:55] LABS: INR 1.07; PROTHROMBIN TIME 11.6 SECONDS (9.0-11.5)
[2024-06-03 13:56] LABS: PARTIAL THROMBOPLASTIN TIME 44.3 SECONDS (22.0-34.0)
[2024-06-03 16:10] VITALS: BP 137/77; O2SAT 98
[2024-06-03] MEDS ORDERED: ORPHENADRINE CITRATE 100 MG TABLET PO ONE (16:20)
[2024-06-03] MEDS ORDERED: MIDAZOLAM HCL 2 MG/2 ML VIAL IV PUSH NR (16:30)
[2024-06-03] MEDS ORDERED: fentaNYL CITRATE 50 MCG/ML AMPUL IV PUSH NR (16:30)
[2024-06-03] MEDS ORDERED: AMINOCAPROIC ACID 20 MG/ML ML IV SCH (21:00)
[2024-06-04] VITALS: BP 134/81; O2SAT 95
[2024-06-04 06:24] LABS: MEAN CELL VOLUME 88.2 fL (80.0-100.00); MEAN CORPUSCULAR HGB CONC 33.7 g/dl (32.0-36.0); PLATELET COUNT 294 K/uL (150-450); RED BLOOD COUNT 2.66 M/uL (4.00-6.00); RED CELL DISTRIBUTION WIDTH 16.2 % (11.5-14.5)
[2024-06-04 06:39] LABS: HEMATOCRIT 23.4 % (39.0-48.0); MEAN CORPUSCULAR HEMOGLOBIN 29.6 pg (27.00-32.0)
[2024-06-04 06:40] LABS: HEMOGLOBIN 7.9 g/dL (13-16.00)
[2024-06-04 07:12] LABS: ALBUMIN 1.5 gm/dL (3.4-5.0); BILIRUBIN TOTAL 0.46 mg/dL (0.3-1.2); CALCIUM 8.1 mg/dL (8.5-10.1); CREATININE SERUM 0.71 mg/dL (0.70-1.30); GFR 113.17; GLOBULINA 5.4 G/DL (2.4-3.5); POTASSIUM 3.69 mEq/L (3.5-5.1); TOTAL PROTEIN 6.9 gm/dL (6.4-8.2)
[2024-06-04 08:48] VITALS: BP 109/77; O2SAT 97
[2024-06-04 17:36] VITALS: BP 125/80; O2SAT 97
[2024-06-05 00:29] VITALS: BP 142/89; O2SAT 100
[2024-06-05 08:00] VITALS: BP 157/84; O2SAT 95
[2024-06-05] MEDS ORDERED: CALCIUM GLUCONATE 100 MG/ML VIAL IV SCH ×2 (09:00→10:00)
[2024-06-05] MEDS ORDERED: DIPHENHYDRAMINE HCL 50 MG/ML VIAL 1ML IV SCH ×2 (09:00→10:00)
[2024-06-05] MEDS ORDERED: METHYLPREDNISOLONE SOD SUCC 40 MG VIAL IV SCH ×2 (09:00→10:00)
[2024-06-05 09:31] LABS: HEMATOCRIT 27.9 % (39.0-48.0); HEMOGLOBIN 9.4 g/dL (13-16.00); MEAN CELL VOLUME 88.7 fL (80.0-100.00); MEAN CORPUSCULAR HGB CONC 33.8 g/dl (32.0-36.0); PLATELET COUNT 283 K/uL (150-450); RED BLOOD COUNT 3.15 M/uL (4.00-6.00); RED CELL DISTRIBUTION WIDTH 14.7 % (11.5-14.5)
[2024-06-05 10:59] LABS: INR 1.08; PROTHROMBIN TIME 11.7 SECONDS (9.0-11.5)
[2024-06-05 11:03] LABS: ALBUMIN 1.4 gm/dL (3.4-5.0); BILIRUBIN TOTAL 0.52 mg/dL (0.3-1.2); CREATININE SERUM 0.72 mg/dL (0.70-1.30); GFR 111.35; GLOBULINA 5.8 G/DL (2.4-3.5); MAGNESIUM 1.8 mg/dL (1.8-2.4); PARTIAL THROMBOPLASTIN TIME 55.1 SECONDS (22.0-34.0); POTASSIUM 3.58 mEq/L (3.5-5.1); TOTAL PROTEIN 7.2 gm/dL (6.4-8.2)
[2024-06-05 13:58] VITALS: BP 176/97; O2SAT 97
[2024-06-05 16:07] VITALS: BP 168/98; O2SAT 100
[2024-06-05] MEDS ORDERED: HEPARIN SODIUM,PORCINE 500 UNITS/5 ML VIAL IV ONE (16:38)
[2024-06-05] MEDS ORDERED: LIDOCAINE HCL 1% 10ML VIAL ONE (16:38)
[2024-06-05] MEDS ORDERED: CEFTRIAXONE SODIUM 1,000 MG VIAL IV STA (16:52)
[2024-06-05] MEDS ORDERED: CEFTRIAXONE SODIUM 1,000 MG VIAL IV SCH (16:52)
[2024-06-05] MEDS ORDERED: ACETAMINOPHEN 500 MG GEL..CAP PO PRN (17:00)
[2024-06-05] MEDS ORDERED: HEPARIN SODIUM,PORCINE 5,000 UNIT/ML VIAL IJ ONE (17:00)
[2024-06-05] MEDS ORDERED: LIDOCAINE HCL 1% 10ML VIAL IJ ONE (17:00)
[2024-06-05] MEDS ORDERED: HEPARIN SODIUM,PORCINE 5,000 UNITS/ML VIAL IV ONE (22:00)
[2024-06-05 22:43] VITALS: BP 145/97; O2SAT 100
[2024-06-05 23:27] VITALS: BP 140/93; O2SAT 98
[2024-06-06 04:00] VITALS: BP 134/80; O2SAT 96
[2024-06-06 07:58] VITALS: BP 148/89; O2SAT 95
[2024-06-06 11:47] LABS: MEAN CELL VOLUME 89.5 fL (80.0-100.00); MEAN CORPUSCULAR HGB CONC 33.4 g/dl (32.0-36.0); PLATELET COUNT 249 K/uL (150-450); RED CELL DISTRIBUTION WIDTH 15.1 % (11.5-14.5)
[2024-06-06 11:53] LABS: HEMATOCRIT 23.3 % (39.0-48.0)
[2024-06-06 11:55] LABS: HEMOGLOBIN 7.8 g/dL (13-16.00)
[2024-06-06 12:00] VITALS: BP 151/89; O2SAT 95
[2024-06-06 12:08] LABS: INR 1.15; PROTHROMBIN TIME 12.4 SECONDS (9.0-11.5)
[2024-06-06 12:13] LABS: ALBUMIN 2.5 gm/dL (3.4-5.0); BILIRUBIN TOTAL 0.91 mg/dL (0.3-1.2); CALCIUM 8.4 mg/dL (8.5-10.1); CREATININE SERUM 0.64 mg/dL (0.70-1.30); GFR 127.57; POTASSIUM 3.54 mEq/L (3.5-5.1); TOTAL PROTEIN 6.5 gm/dL (6.4-8.2)
[2024-06-06 12:18] LABS: PARTIAL THROMBOPLASTIN TIME 46.1 SECONDS (22.0-34.0)
[2024-06-06] MEDS ORDERED: EPINEPHRINE HCL/PF 1 MG/ML AMPUL ONE (13:37)
[2024-06-06] MEDS ORDERED: EPINEPHRINE HCL/PF 1 MG/ML AMPUL SUBCUTANEO STA (13:51)
[2024-06-06] MEDS ORDERED: MORPHINE SULFATE 4 MG/ML CARTRIDGE IV PRN (14:15)
[2024-06-06 15:35] VITALS: BP 155/84; O2SAT 98
[2024-06-06] MEDS ORDERED: DESMOPRESSIN ACETATE 4 MCG/ML AMPUL IV STA (15:50)
[2024-06-06] MEDS ORDERED: DESMOPRESSIN ACETATE 4 MCG/ML AMPUL IV ONE (20:15)
[2024-06-06 21:47] VITALS: BP 163/93; O2SAT 96
[2024-06-06 23:02] VITALS: BP 125/97; O2SAT 96
[2024-06-07 04:00] VITALS: BP 143/93; O2SAT 96
[2024-06-07] MEDS ORDERED: VANCOMYCIN HCL 1,000 MG VIAL IV SCH (05:00)
[2024-06-07] MEDS ORDERED: FUROsemide 20 MG/2 ML VIAL ONE (05:15)
[2024-06-07] MEDS ORDERED: CARBOPROST TROMETHAMINE 250 MCG/ML AMPUL IM STA (05:29)
[2024-06-07 07:34] VITALS: BP 145/95; O2SAT 98
[2024-06-07] MEDS ORDERED: HEMOSTATIC MATRIX 1 KIT KIT TOP NR (08:45)
[2024-06-07 11:34] LABS: MEAN CELL VOLUME 89.2 fL (80.0-100.00); MEAN CORPUSCULAR HGB CONC 34.7 g/dl (32.0-36.0); PLATELET COUNT 273 K/uL (150-450); RED BLOOD COUNT 2.33 M/uL (4.00-6.00); RED CELL DISTRIBUTION WIDTH 14.4 % (11.5-14.5)
[2024-06-07 11:54] LABS: HEMATOCRIT 20.7 % (39.0-48.0); HEMOGLOBIN 7.2 g/dL (13-16.00); MEAN CORPUSCULAR HEMOGLOBIN 30.9 pg (27.00-32.0)
[2024-06-07 12:00] VITALS: BP 121/86; O2SAT 97
[2024-06-07 15:40] VITALS: BP 105/60; O2SAT 96
[2024-06-07] MEDS ORDERED: HEPARIN SODIUM,PORCINE 5,000 UNITS/ML VIAL ONE (16:00)
[2024-06-07 20:46] VITALS: BP 124/70; O2SAT 94
[2024-06-07] MEDS ORDERED: FAMOtidine 20 MG TABLET PO SCH (21:00)
[2024-06-07 23:31] VITALS: BP 126/82; O2SAT 96
[2024-06-08 04:00] VITALS: BP 115/84; O2SAT 100
[2024-06-08 07:11] VITALS: BP 138/84; O2SAT 100
[2024-06-08 09:17] LABS: MEAN CORPUSCULAR HGB CONC 34.9 g/dl (32.0-36.0); PLATELET COUNT 181 K/uL (150-450); RED BLOOD COUNT 2.56 M/uL (4.00-6.00)
[2024-06-08 09:21] LABS: HEMATOCRIT 21.7 % (39.0-48.0); MEAN CORPUSCULAR HEMOGLOBIN 29.6 pg (27.00-32.0)
[2024-06-08 09:22] LABS: HEMOGLOBIN 7.6 g/dL (13-16.00)
[2024-06-08 09:38] LABS: INR 1.1; PROTHROMBIN TIME 11.9 SECONDS (9.0-11.5)
[2024-06-08 09:43] LABS: PARTIAL THROMBOPLASTIN TIME 38.3 SECONDS (22.0-34.0)
[2024-06-08 10:08] LABS: ALBUMIN 2.4 gm/dL (3.4-5.0); BILIRUBIN TOTAL 0.89 mg/dL (0.3-1.2); CREATININE SERUM 0.63 mg/dL (0.70-1.30); GFR 129.91; GLOBULINA 3.5 G/DL (2.4-3.5); MAGNESIUM 2.1 mg/dL (1.8-2.4); POTASSIUM 3.42 mEq/L (3.5-5.1); TOTAL PROTEIN 5.9 gm/dL (6.4-8.2)
[2024-06-08] MEDS ORDERED: POTASSIUM CHLORIDE 20MEQ/100ML H2O PB IV NR ×2 (10:15→14:45)
[2024-06-08] MEDS ORDERED: HEPARIN SODIUM,PORCINE 5,000 UNITS/ML VIAL ONE (11:37)
[2024-06-08 12:00] VITALS: BP 148/92; O2SAT 100
[2024-06-08 15:28] VITALS: BP 143/88; O2SAT 98
[2024-06-08 20:00] VITALS: BP 165/92; O2SAT 100
[2024-06-08 23:53] VITALS: BP 128/76; O2SAT 100
[2024-06-09] VITALS (7 sets, daily range): BP systolic 104–161; BP diastolic 75–88; O2SAT 95–100
[2024-06-09 04:33] LABS: HEMATOCRIT 26.9 % (39.0-48.0); MEAN CELL VOLUME 83.5 fL (80.0-100.00); MEAN CORPUSCULAR HGB CONC 34.1 g/dl (32.0-36.0); PLATELET COUNT 158 K/uL (150-450); RED BLOOD COUNT 3.22 M/uL (4.00-6.00); RED CELL DISTRIBUTION WIDTH 18.7 % (11.5-14.5)
[2024-06-09 04:35] LABS: HEMOGLOBIN 9.2 g/dL (13-16.00); MEAN CORPUSCULAR HEMOGLOBIN 28.5 pg (27.00-32.0)
[2024-06-09 07:06] LABS: ALBUMIN 2.6 gm/dL (3.4-5.0); BILIRUBIN TOTAL 0.95 mg/dL (0.3-1.2); CREATININE SERUM 0.51 mg/dL (0.70-1.30); GFR 165.78; GLOBULINA 3.5 G/DL (2.4-3.5); INR 1.06; PARTIAL THROMBOPLASTIN TIME 36.6 SECONDS (22.0-34.0); POTASSIUM 3.42 mEq/L (3.5-5.1); PROTHROMBIN TIME 11.5 SECONDS (9.0-11.5); TOTAL PROTEIN 6.1 gm/dL (6.4-8.2)
[2024-06-09] MEDS ORDERED: POTASSIUM CHLORIDE 20MEQ/100ML H2O PB IV NR ×2 (08:30→11:00)
[2024-06-09 12:23] LABS: HEMATOCRIT 26.2 % (39.0-48.0); MEAN CELL VOLUME 85.5 fL (80.0-100.00); MEAN CORPUSCULAR HGB CONC 33.6 g/dl (32.0-36.0); PLATELET COUNT 182 K/uL (150-450); RED BLOOD COUNT 3.06 M/uL (4.00-6.00); RED CELL DISTRIBUTION WIDTH 18.7 % (11.5-14.5)
[2024-06-09 12:24] LABS: HEMOGLOBIN 8.8 g/dL (13-16.00); MEAN CORPUSCULAR HEMOGLOBIN 28.7 pg (27.00-32.0)
[2024-06-09] MEDS ORDERED: HEPARIN SODIUM,PORCINE 5,000 UNITS/ML VIAL SPEPROC NR (16:00)
[2024-06-09] MEDS ORDERED: CEFTRIAXONE SODIUM 2,000 MG in 0.9 % SODIUM CHLORIDE 100 ML IV SCH (17:00)
[2024-06-09] MEDS ORDERED: REVLIMID 25 MG PO SCH (17:15)
[2024-06-09] MEDS ORDERED: DEXAMETHASONE SODIUM PHOSP/PF 10 MG/ML VIAL IJ SCH (18:00)
[2024-06-09 19:11] LABS: HEMATOCRIT 24.3 % (39.0-48.0); MEAN CELL VOLUME 85.4 fL (80.0-100.00); MEAN CORPUSCULAR HGB CONC 33.2 g/dl (32.0-36.0); PLATELET COUNT 196 K/uL (150-450); RED BLOOD COUNT 2.84 M/uL (4.00-6.00); RED CELL DISTRIBUTION WIDTH 18.8 % (11.5-14.5)
[2024-06-09 19:15] LABS: MEAN CORPUSCULAR HEMOGLOBIN 28.5 pg (27.00-32.0)
[2024-06-09 19:16] LABS: HEMOGLOBIN 8.1 g/dL (13-16.00)
[2024-06-10] VITALS (10 sets, daily range): BP systolic 97–139; BP diastolic 45–84; O2SAT 95–100
[2024-06-10 07:11] LABS: MEAN CELL VOLUME 86.6 fL (80.0-100.00); PLATELET COUNT 160 K/uL (150-450); RED BLOOD COUNT 2.31 M/uL (4.00-6.00); RED CELL DISTRIBUTION WIDTH 18.6 % (11.5-14.5)
[2024-06-10 07:13] LABS: HEMOGLOBIN 6.6 g/dL (13-16.00); MEAN CORPUSCULAR HEMOGLOBIN 28.5 pg (27.00-32.0)
[2024-06-10] MEDS ORDERED: VANCOMYCIN HCL 1,250 MG in 0.9 % SODIUM CHLORIDE 250 ML IV SCH (17:58)
[2024-06-10] MEDS ORDERED: VANCOMYCIN HCL 5 MG/ML REDILUIDO IV SCH (21:00)
[2024-06-11 02:47] LABS: MEAN CELL VOLUME 86.1 fL (80.0-100.00); MEAN CORPUSCULAR HGB CONC 33.9 g/dl (32.0-36.0); RED CELL DISTRIBUTION WIDTH 15.2 % (11.5-14.5)
[2024-06-11 04:00] VITALS: BP 130/76; O2SAT 100
[2024-06-11 04:02] LABS: MEAN CORPUSCULAR HEMOGLOBIN 29.3 pg (27.00-32.0)
[2024-06-11 04:03] LABS: HEMOGLOBIN 8.5 g/dL (13-16.00); PLATELET COUNT 119 K/uL (150-450)
[2024-06-11 07:29] VITALS: BP 115/73; O2SAT 100
[2024-06-11] MEDS ORDERED: DIPHENHYDRAMINE HCL 50 MG/ML VIAL 1ML IV STA (09:51)
[2024-06-11] MEDS ORDERED: METHYLPREDNISOLONE SOD SUCC 40 MG VIAL IV STA (09:51)
[2024-06-11] MEDS ORDERED: CALCIUM GLUCONATE 100 MG/ML VIAL IV SCH (11:30)
[2024-06-11] MEDS ORDERED: HEPARIN SODIUM,PORCINE 5,000 UNITS/ML VIAL ONE (11:59)
[2024-06-11 15:01] LABS: MEAN CELL VOLUME 86.8 fL (80.0-100.00); MEAN CORPUSCULAR HGB CONC 34.3 g/dl (32.0-36.0); RED BLOOD COUNT 2.15 M/uL (4.00-6.00); RED CELL DISTRIBUTION WIDTH 15.9 % (11.5-14.5)
[2024-06-11 15:04] LABS: HEMATOCRIT 18.6 % (39.0-48.0); HEMOGLOBIN 6.4 g/dL (13-16.00); MEAN CORPUSCULAR HEMOGLOBIN 29.7 pg (27.00-32.0); PLATELET COUNT 102 K/uL (150-450)
[2024-06-11 15:23] LABS: INR 1.1; PROTHROMBIN TIME 11.9 SECONDS (9.0-11.5)
[2024-06-11 15:47] LABS: PARTIAL THROMBOPLASTIN TIME 55.7 SECONDS (22.0-34.0)
[2024-06-11] MEDS ORDERED: EPINEPHRINE HCL/PF 1 MG/ML AMPUL ONE (15:59)
[2024-06-11 16:00] VITALS: BP 127/80; O2SAT 100
[2024-06-11] MEDS ORDERED: AMINOCAPROIC ACID 250 MG/ML VIAL IV STA (16:36)
[2024-06-11] MEDS ORDERED: DESMOPRESSIN ACETATE 40 MCG/10 ML ML IV STA (16:39)
[2024-06-11] MEDS ORDERED: DEXAMETHASONE SODIUM PHOSP/PF 10 MG/ML VIAL IJ SCH (18:00)
[2024-06-11 20:00] VITALS: BP 123/68; O2SAT 96
[2024-06-11 23:08] VITALS: BP 123/70; O2SAT 95
[2024-06-12 04:00] VITALS: BP 132/71; O2SAT 100
[2024-06-12 07:20] VITALS: BP 134/73; O2SAT 100
[2024-06-12 12:15] VITALS: BP 151/81; O2SAT 100
[2024-06-12 12:16] LABS: ALBUMIN 2.7 gm/dL (3.4-5.0); BILIRUBIN TOTAL 0.53 mg/dL (0.3-1.2); CALCIUM 8.3 mg/dL (8.5-10.1); CREATININE SERUM 0.64 mg/dL (0.70-1.30); GFR 127.57; GLOBULINA 3.6 G/DL (2.4-3.5); POTASSIUM 3.79 mEq/L (3.5-5.1); TOTAL PROTEIN 6.3 gm/dL (6.4-8.2)
[2024-06-12 15:21] VITALS: BP 152/90; O2SAT 100
[2024-06-12] MEDS ORDERED: DOCUSATE SODIUM 100MG CAP PO SCH (17:00)
[2024-06-12 17:56] LABS: MEAN CELL VOLUME 88.9 fL (80.0-100.00); MEAN CORPUSCULAR HGB CONC 34.3 g/dl (32.0-36.0); RED BLOOD COUNT 2.65 M/uL (4.00-6.00); RED CELL DISTRIBUTION WIDTH 14.8 % (11.5-14.5)
[2024-06-12 17:58] LABS: MEAN CORPUSCULAR HEMOGLOBIN 30.5 pg (27.00-32.0)
[2024-06-12 17:59] LABS: HEMATOCRIT 23.6 % (39.0-48.0)
[2024-06-12 18:00] LABS: PLATELET COUNT 84 K/uL (150-450)
[2024-06-12 19:16] LABS: HEMOGLOBIN 8.1 g/dL (13-16.00)
[2024-06-12 20:00] VITALS: BP 143/82; O2SAT 100
[2024-06-12 23:23] VITALS: BP 136/79; O2SAT 100
[2024-06-13 04:00] VITALS: BP 133/75; O2SAT 100
[2024-06-13 07:37] VITALS: BP 147/81; O2SAT 97
[2024-06-13 07:54] LABS: ALBUMIN 2.1 gm/dL (3.4-5.0); BILIRUBIN TOTAL 0.44 mg/dL (0.3-1.2); CALCIUM 7.7 mg/dL (8.5-10.1); CREATININE SERUM 0.52 mg/dL (0.70-1.30); GFR 162.11; GLOBULINA 3.6 G/DL (2.4-3.5); TOTAL PROTEIN 5.7 gm/dL (6.4-8.2)
[2024-06-13 08:01] LABS: MEAN CORPUSCULAR HGB CONC 34.4 g/dl (32.0-36.0); RED CELL DISTRIBUTION WIDTH 15.1 % (11.5-14.5)
[2024-06-13 08:17] LABS: HEMOGLOBIN 8.3 g/dL (13-16.00); MEAN CORPUSCULAR HEMOGLOBIN 30.7 pg (27.00-32.0); PLATELET COUNT 81 K/uL (150-450)
[2024-06-13] MEDS ORDERED: PANTOPRAZOLE SODIUM 40 MG TABLET.DR PO SCH (09:00)
[2024-06-13 09:20] LABS: POTASSIUM 2.91 mEq/L (3.5-5.1)
[2024-06-13 12:00] VITALS: BP 142/93; O2SAT 100
[2024-06-13] MEDS ORDERED: POTASSIUM CHLORIDE IN WATER 40 MEQ/100 ML PIGGYBAG IV SCH (14:00)
[2024-06-13 15:18] VITALS: BP 142/86; O2SAT 100
[2024-06-13] MEDS ORDERED: SUCRALFATE 1 G TABLET PO SCH (17:00)
[2024-06-13] MEDS ORDERED: (FF) Daptomycin 50 MG/ML IV SCH (17:00)
[2024-06-13 20:01] VITALS: BP 141/85; O2SAT 100
[2024-06-13 23:37] VITALS: BP 144/90; O2SAT 100
[2024-06-14 04:00] VITALS: BP 142/56; O2SAT 100
[2024-06-14 06:35] LABS: HEMATOCRIT 26.6 % (39.0-48.0); HEMOGLOBIN 9.3 g/dL (13-16.00); MEAN CELL VOLUME 89.1 fL (80.0-100.00); MEAN CORPUSCULAR HEMOGLOBIN 31.1 pg (27.00-32.0); MEAN CORPUSCULAR HGB CONC 34.9 g/dl (32.0-36.0); RED BLOOD COUNT 2.99 M/uL (4.00-6.00); RED CELL DISTRIBUTION WIDTH 15.8 % (11.5-14.5)
[2024-06-14 06:40] LABS: PLATELET COUNT 73 K/uL (150-450)
[2024-06-14 07:06] VITALS: BP 141/90; O2SAT 100
[2024-06-14 07:11] LABS: CALCIUM 7.9 mg/dL (8.5-10.1); CREATININE SERUM 0.51 mg/dL (0.70-1.30); GFR 165.78; POTASSIUM 3.35 mEq/L (3.5-5.1)
[2024-06-14] MEDS ORDERED: EPOETIN ALFA-EPBX 10,000 UNIT/ML VIAL (Retacrit) SUBCUTANEO SCH (09:00)
[2024-06-14 12:00] VITALS: BP 141/91; O2SAT 100
[2024-06-14] MEDS ORDERED: POTASSIUM CHLORIDE 20MEQ/100ML H2O PB IV NR (13:11)
[2024-06-14 15:06] VITALS: BP 118/80; O2SAT 100
[2024-06-14 20:17] VITALS: BP 121/80; O2SAT 98
[2024-06-14 23:18] VITALS: BP 117/77; O2SAT 96
[2024-06-15 04:00] VITALS: BP 124/82; O2SAT 99
[2024-06-15 07:45] VITALS: BP 123/81; O2SAT 99
[2024-06-15 12:32] VITALS: BP 122/77; O2SAT 96
[2024-06-15 14:45] LABS: CALCIUM 8.6 mg/dL (8.5-10.1); CREATININE SERUM 0.48 mg/dL (0.70-1.30); GFR 177.79; POTASSIUM 3.69 mEq/L (3.5-5.1)
[2024-06-15 15:52] VITALS: BP 104/71; O2SAT 95
[2024-06-15] MEDS ORDERED: ACETAMINOPHEN 500 MG GEL..CAP PO PRN (18:00)
[2024-06-15 20:47] VITALS: BP 99/68; O2SAT 96
[2024-06-15 21:29] LABS: URINE APPEARANCE Turbid; URINE BILIRRUBIN Negative (NEGATIVE); URINE BLOOD Large; URINE COLOR Dark Yellow; URINE GLUCOSE Negative (NEGATIVE); URINE KETONE Trace (NEGATIVE); URINE LEUKOCYTE Large; URINE NITRATE Negative
[2024-06-15 21:33] LABS: URINE BACTERIA 559.4 uL (0.0-1933); URINE EPITHELIAL CELLS 2.1 uL (0.0-38.8)
[2024-06-15 22:07] LABS: URINE MUCUS SCANT; URINE PROTEIN 100 (NEGATIVE); URINE YEAST FEW /hpf
[2024-06-15 23:20] VITALS: BP 109/73
[2024-06-16 04:00] VITALS: BP 98/60; O2SAT 100
[2024-06-16 06:49] LABS: MEAN CELL VOLUME 91.3 fL (80.0-100.00); MEAN CORPUSCULAR HGB CONC 33.6 g/dl (32.0-36.0); RED BLOOD COUNT 2.74 M/uL (4.00-6.00); RED CELL DISTRIBUTION WIDTH 17.4 % (11.5-14.5)
[2024-06-16 07:03] VITALS: BP 113/74; O2SAT 97
[2024-06-16 07:08] LABS: MEAN CORPUSCULAR HEMOGLOBIN 30.6 pg (27.00-32.0); PLATELET COUNT 123 K/uL (150-450)
[2024-06-16 07:09] LABS: HEMOGLOBIN 8.4 g/dL (13-16.00)
[2024-06-16 12:00] VITALS: BP 130/85; O2SAT 97
[2024-06-16 14:58] VITALS: BP 142/81; O2SAT 97
[2024-06-16 21:20] VITALS: BP 100/60
[2024-06-16] MEDS ORDERED: MOMETASONE FUROATE 15 GM TUBE TOP SCH (22:11)
[2024-06-17 02:00] VITALS: BP 88/51
[2024-06-17] MEDS ORDERED: MEROPENEM 500 MG/VIAL VIAL IV SCH (06:00)
[2024-06-17 09:25] VITALS: BP 99/62
[2024-06-17 09:48] LABS: MEAN CELL VOLUME 91.2 fL (80.0-100.00); MEAN CORPUSCULAR HGB CONC 34.2 g/dl (32.0-36.0); PLATELET COUNT 234 K/uL (150-450); RED BLOOD COUNT 2.96 M/uL (4.00-6.00)
[2024-06-17 09:57] LABS: HEMOGLOBIN 9.2 g/dL (13-16.00)
[2024-06-17 18:23] VITALS: BP 113/64
[2024-06-17 21:49] VITALS: BP 141/84
[2024-06-18 01:10] VITALS: BP 140/80
[2024-06-18 04:17] VITALS: BP 118/68
[2024-06-18 10:39] VITALS: BP 110/74
[2024-06-18 17:20] VITALS: BP 156/86
[2024-06-18 22:12] VITALS: BP 140/74
[2024-06-19 02:00] VITALS: BP 132/82; O2SAT 97
[2024-06-19 08:34] LABS: MEAN CELL VOLUME 91.3 fL (80.0-100.00); MEAN CORPUSCULAR HGB CONC 34.2 g/dl (32.0-36.0); PLATELET COUNT 340 K/uL (150-450); RED BLOOD COUNT 2.57 M/uL (4.00-6.00); RED CELL DISTRIBUTION WIDTH 16.5 % (11.5-14.5)
[2024-06-19 08:44] LABS: MEAN CORPUSCULAR HEMOGLOBIN 31.1 pg (27.00-32.0)
[2024-06-19 08:45] LABS: HEMATOCRIT 23.4 % (39.0-48.0)
[2024-06-19 08:56] LABS: ALBUMIN 1.8 gm/dL (3.4-5.0); BILIRUBIN TOTAL 0.78 mg/dL (0.3-1.2); CALCIUM 8.3 mg/dL (8.5-10.1); CREATININE SERUM 0.52 mg/dL (0.70-1.30); GFR 162.11; POTASSIUM 3.65 mEq/L (3.5-5.1); TOTAL PROTEIN 6.8 gm/dL (6.4-8.2)
[2024-06-19 09:18] VITALS: BP 143/68; O2SAT 97
[2024-06-19 17:41] VITALS: BP 121/69
[2024-06-19 21:55] VITALS: BP 118/70
[2024-06-19] MEDS ORDERED: ACETAMINOPHEN 500 MG GEL..CAP PO PRN (22:30)
[2024-06-20 02:00] VITALS: BP 116/78
[2024-06-20] MEDS ORDERED: MEROPENEM 500 MG/VIAL VIAL IV SCH (06:55)
[2024-06-20 09:42] VITALS: BP 92/51; O2SAT 97
[2024-06-20 17:32] VITALS: BP 140/86
[2024-06-20 21:24] VITALS: BP 142/85
[2024-06-21 02:00] VITALS: BP 106/66
[2024-06-21 09:19] VITALS: BP 110/64; O2SAT 97
[2024-06-21 13:35] LABS: HEMATOCRIT 27.2 % (39.0-48.0); HEMOGLOBIN 9.1 g/dL (13-16.00); MEAN CORPUSCULAR HEMOGLOBIN 30.7 pg (27.00-32.0); MEAN CORPUSCULAR HGB CONC 33.4 g/dl (32.0-36.0); PLATELET COUNT 352 K/uL (150-450); RED BLOOD COUNT 2.96 M/uL (4.00-6.00); RED CELL DISTRIBUTION WIDTH 17.5 % (11.5-14.5)
[2024-06-21 17:42] VITALS: BP 115/72; O2SAT 96
[2024-06-22 02:36] VITALS: BP 105/67; O2SAT 96
[2024-06-22 09:16] VITALS: BP 96/73; O2SAT 98
[2024-06-22] MEDS ORDERED: CEFTAZIDIME/AVIBACTAM 2.5 GM VIAL IV SCH (13:00)
[2024-06-22 15:55] VITALS: BP 123/72; O2SAT 95
[2024-06-23 02:00] VITALS: BP 114/72; O2SAT 95
[2024-06-23 07:53] VITALS: BP 113/77; O2SAT 97
[2024-06-23 08:25] LABS: PLATELET COUNT 355 K/uL (150-450); RED BLOOD COUNT 2.44 M/uL (4.00-6.00); RED CELL DISTRIBUTION WIDTH 17.2 % (11.5-14.5)
[2024-06-23 08:31] LABS: HEMATOCRIT 22.2 % (39.0-48.0); HEMOGLOBIN 7.5 g/dL (13-16.00); MEAN CORPUSCULAR HEMOGLOBIN 30.7 pg (27.00-32.0)
[2024-06-23 08:54] LABS: ALBUMIN 1.5 gm/dL (3.4-5.0); BILIRUBIN TOTAL 0.85 mg/dL (0.3-1.2); CALCIUM 8.2 mg/dL (8.5-10.1); CREATININE SERUM 0.58 mg/dL (0.70-1.30); GFR 142.91; GLOBULINA 5.5 G/DL (2.4-3.5); POTASSIUM 3.7 mEq/L (3.5-5.1)
[2024-06-23 20:39] VITALS: BP 146/85; O2SAT 95
[2024-06-24 01:43] VITALS: BP 147/81
[2024-06-24 10:32] VITALS: BP 121/72
[2024-06-24 11:08] LABS: HEMATOCRIT 28.4 % (39.0-48.0); MEAN CELL VOLUME 90.6 fL (80.0-100.00); MEAN CORPUSCULAR HGB CONC 34.3 g/dl (32.0-36.0); PLATELET COUNT 366 K/uL (150-450); RED BLOOD COUNT 3.14 M/uL (4.00-6.00); RED CELL DISTRIBUTION WIDTH 16.9 % (11.5-14.5)
[2024-06-24 11:15] LABS: HEMOGLOBIN 9.7 g/dL (13-16.00); MEAN CORPUSCULAR HEMOGLOBIN 30.8 pg (27.00-32.0)
[2024-06-24] MEDS ORDERED: VITAMIN B COMPLEX/LYSINE 1 ML ML PO SCH (12:14)
[2024-06-24] MEDS ORDERED: FILGRASTIM-AAFI 300 MCG/0.5 ML SYRINGE SUBCUTANEO SCH (17:00)
[2024-06-24 18:35] VITALS: BP 143/75
[2024-06-25 02:15] VITALS: BP 148/79
[2024-06-25 09:23] VITALS: BP 146/89; O2SAT 98
[2024-06-25 17:44] VITALS: BP 153/96; O2SAT 97
[2024-06-26 02:54] VITALS: BP 142/77; O2SAT 95
[2024-06-26 09:46] VITALS: BP 144/90
[2024-06-26 09:51] LABS: HEMATOCRIT 32.2 % (39.0-48.0); HEMOGLOBIN 11.1 g/dL (13-16.00); MEAN CORPUSCULAR HEMOGLOBIN 30.7 pg (27.00-32.0); MEAN CORPUSCULAR HGB CONC 34.5 g/dl (32.0-36.0); PLATELET COUNT 374 K/uL (150-450); RED BLOOD COUNT 3.62 M/uL (4.00-6.00); RED CELL DISTRIBUTION WIDTH 16.6 % (11.5-14.5)
[2024-06-26 17:34] VITALS: BP 98/49
[2024-06-27 03:16] VITALS: BP 138/90; O2SAT 93
[2024-06-27 10:03] VITALS: BP 148/100
[2024-06-27 13:45] LABS: ALBUMIN 1.6 gm/dL (3.4-5.0); BILIRUBIN TOTAL 0.84 mg/dL (0.3-1.2); CALCIUM 8.5 mg/dL (8.5-10.1); CREATININE SERUM 0.55 mg/dL (0.70-1.30); GFR 151.95; GLOBULINA 6.2 G/DL (2.4-3.5); POTASSIUM 3.63 mEq/L (3.5-5.1); TOTAL PROTEIN 7.8 gm/dL (6.4-8.2)
[2024-06-27 19:06] VITALS: BP 134/87; O2SAT 97
[2024-06-27] MEDS ORDERED: TEMAZEPAM 15 MG CAPSULE PO SCH (21:00)
[2024-06-28 02:28] VITALS: BP 132/86; O2SAT 94
[2024-06-28 08:57] LABS: HEMATOCRIT 34.5 % (39.0-48.0); HEMOGLOBIN 11.6 g/dL (13-16.00); MEAN CELL VOLUME 91.2 fL (80.0-100.00); MEAN CORPUSCULAR HEMOGLOBIN 30.6 pg (27.00-32.0); MEAN CORPUSCULAR HGB CONC 33.5 g/dl (32.0-36.0); PLATELET COUNT 419 K/uL (150-450); RED BLOOD COUNT 3.78 M/uL (4.00-6.00); RED CELL DISTRIBUTION WIDTH 17.1 % (11.5-14.5)
[2024-06-28 09:00] VITALS: BP 125/83
[2024-06-28 18:17] VITALS: BP 144/85; O2SAT 97
[2024-06-28 22:07] VITALS: BP 130/100; O2SAT 96
[2024-06-29 01:57] VITALS: BP 125/85; BP 141/89; O2SAT 93; O2SAT 98
[2024-06-29 07:59] LABS: HEMATOCRIT 31.6 % (39.0-48.0); HEMOGLOBIN 10.4 g/dL (13-16.00); MEAN CELL VOLUME 90.7 fL (80.0-100.00); MEAN CORPUSCULAR HEMOGLOBIN 29.9 pg (27.00-32.0); PLATELET COUNT 471 K/uL (150-450); RED BLOOD COUNT 3.49 M/uL (4.00-6.00); RED CELL DISTRIBUTION WIDTH 17.1 % (11.5-14.5)
[2024-06-29 09:06] VITALS: BP 143/87; O2SAT 98
[2024-06-29 16:00] VITALS: BP 145/93; O2SAT 96
[2024-06-30 02:34] VITALS: BP 133/85; O2SAT 95
[2024-06-30] MEDS ORDERED: PANTOPRAZOLE SODIUM 40 MG/VIAL VIAL IV PUSH PRN (03:45)
[2024-06-30 08:20] VITALS: BP 115/81
[2024-06-30] MEDS ORDERED: DIATRIZOATE MEGLUMINE, SODIUM 30 ML BOTTLE PO NR (09:00)
[2024-06-30 09:13] LABS: MEAN CELL VOLUME 89.7 fL (80.0-100.00); PLATELET COUNT 437 K/uL (150-450); RED BLOOD COUNT 2.42 M/uL (4.00-6.00); RED CELL DISTRIBUTION WIDTH 17.7 % (11.5-14.5)
[2024-06-30 09:28] LABS: HEMATOCRIT 21.7 % (39.0-48.0); HEMOGLOBIN 7.4 g/dL (13-16.00); MEAN CORPUSCULAR HEMOGLOBIN 30.5 pg (27.00-32.0)
[2024-06-30 10:09] LABS: ALBUMIN 1.6 gm/dL (3.4-5.0); BILIRUBIN TOTAL 0.66 mg/dL (0.3-1.2); CALCIUM 7.9 mg/dL (8.5-10.1); CREATININE SERUM 0.72 mg/dL (0.70-1.30); GFR 111.35; GLOBULINA 5.9 G/DL (2.4-3.5); POTASSIUM 3.99 mEq/L (3.5-5.1); TOTAL PROTEIN 7.5 gm/dL (6.4-8.2)
[2024-06-30] MEDS ORDERED: MORPHINE SULFATE 4 MG/ML CARTRIDGE IV PRN (14:30)
[2024-06-30] MEDS ORDERED: PANTOPRAZOLE SODIUM 40 MG/VIAL VIAL IV PUSH SCH (17:00)
[2024-06-30 17:24] VITALS: BP 104/63
[2024-06-30] MEDS ORDERED: DOCUSATE SODIUM 100MG CAP PO SCH (18:46)
[2024-06-30 21:21] VITALS: BP 95/54
[2024-07-01 01:26] VITALS: BP 92/59; O2SAT 98
[2024-07-01 05:02] VITALS: BP 96/60; O2SAT 94
[2024-07-01 07:58] VITALS: BP 92/58
[2024-07-01 18:21] VITALS: BP 110/59
[2024-07-02 01:38] VITALS: BP 91/54; O2SAT 91
[2024-07-02 08:00] VITALS: BP 95/57; O2SAT 95
[2024-07-02] MEDS ORDERED: VANCOMYCIN HCL 5 MG/ML REDILUIDO IV SCH (09:00)
[2024-07-02] MEDS ORDERED: CEFTAZIDIME/AVIBACTAM 2.5 GM VIAL IV SCH (09:00)
[2024-07-02 15:11] LABS: kappa lambda r 56.07 (0.26-1.65); kappa light 1082.2 mg/L (3.3-19.4); lambda light 19.3 mg/L (5.7-26.3)
[2024-07-02 16:53] VITALS: BP 120/64
[2024-07-02] MEDS ORDERED: ACETAMINOPHEN 500 MG GEL..CAP PO PRN (17:00)
[2024-07-03 01:20] VITALS: BP 118/76
[2024-07-03 08:24] VITALS: BP 137/82
[2024-07-03] MEDS ORDERED: MORPHINE SULFATE 4 MG/ML VIAL IV PRN (11:15)
[2024-07-03] MEDS ORDERED: MORPHINE SULFATE 4 MG/ML CARTRIDGE IV PRN (11:45)
[2024-07-03 15:10] LABS: BETA-2-MICROGLOBULINA 4.3 mg/L (0.6-2.4)
[2024-07-03 16:00] VITALS: BP 117/75; O2SAT 96
[2024-07-04 00:37] LABS: MEAN CELL VOLUME 87.9 fL (80.0-100.00); MEAN CORPUSCULAR HGB CONC 34.1 g/dl (32.0-36.0); PLATELET COUNT 160 K/uL (150-450); RED BLOOD COUNT 2.12 M/uL (4.00-6.00); RED CELL DISTRIBUTION WIDTH 14.9 % (11.5-14.5)
[2024-07-04 00:38] LABS: HEMATOCRIT 18.7 % (39.0-48.0); MEAN CORPUSCULAR HEMOGLOBIN 30.1 pg (27.00-32.0)
[2024-07-04 00:39] LABS: HEMOGLOBIN 6.4 g/dL (13-16.00)
[2024-07-04 01:14] LABS: CALCIUM 8.4 mg/dL (8.5-10.1); CREATININE SERUM 0.63 mg/dL (0.70-1.30); GFR 129.91; POTASSIUM 3.97 mEq/L (3.5-5.1)
[2024-07-04 01:46] VITALS: BP 110/68
[2024-07-04 09:21] VITALS: BP 115/64
[2024-07-04 16:00] VITALS: BP 119/67; O2SAT 95
[2024-07-05 02:20] VITALS: BP 101/58; O2SAT 96
[2024-07-05 08:31] VITALS: BP 121/74; O2SAT 95
[2024-07-05 11:09] LABS: D DIMER 9.74 MG/L; FIBRINOGEN 425 mg/dL (187.0-446.0); INR 1.16; PROTHROMBIN TIME 12.5 SECONDS (9.0-11.5)
[2024-07-05 11:11] LABS: PARTIAL THROMBOPLASTIN TIME 51.8 SECONDS (22.0-34.0)
[2024-07-05 11:26] LABS: COL EPI 87 SECONDS (82-175)
[2024-07-05] MEDS ORDERED: AZTREONAM 2,000 MG VIAL IV SCH (17:00)
[2024-07-05 17:14] VITALS: BP 136/83; O2SAT 96
[2024-07-05] MEDS ORDERED: MORPHINE SULFATE 4 MG/ML CARTRIDGE IV PRN (17:15)
[2024-07-05 20:31] LABS: MEAN CELL VOLUME 88.8 fL (80.0-100.00); MEAN CORPUSCULAR HGB CONC 33.6 g/dl (32.0-36.0); RED BLOOD COUNT 2.36 M/uL (4.00-6.00); RED CELL DISTRIBUTION WIDTH 16.4 % (11.5-14.5)
[2024-07-05 20:32] LABS: MEAN CORPUSCULAR HEMOGLOBIN 29.6 pg (27.00-32.0); PLATELET COUNT 130 K/uL (150-450)
[2024-07-05] MEDS ORDERED: AMINOCAPROIC ACID 250 MG/ML VIAL IV ONE (21:00)
[2024-07-06 03:06] VITALS: BP 127/84; O2SAT 94
[2024-07-06 09:33] VITALS: BP 128/72
[2024-07-06 19:21] VITALS: BP 148/74; O2SAT 95
[2024-07-06 22:45] VITALS: BP 136/79; O2SAT 100
[2024-07-07 02:16] VITALS: BP 169/83; O2SAT 94
[2024-07-07 04:17] LABS: MEAN CORPUSCULAR HGB CONC 34.2 g/dl (32.0-36.0); RED BLOOD COUNT 2.32 M/uL (4.00-6.00); RED CELL DISTRIBUTION WIDTH 15.9 % (11.5-14.5)
[2024-07-07 04:19] LABS: MEAN CORPUSCULAR HEMOGLOBIN 30.1 pg (27.00-32.0)
[2024-07-07 04:35] LABS: HEMATOCRIT 20.4 % (39.0-48.0); PLATELET COUNT 122 K/uL (150-450)
[2024-07-07 04:39] LABS: INR 1.17; PROTHROMBIN TIME 12.6 SECONDS (9.0-11.5)
[2024-07-07 04:41] LABS: PARTIAL THROMBOPLASTIN TIME 50.7 SECONDS (22.0-34.0)
[2024-07-07 09:11] VITALS: BP 147/70
[2024-07-07 18:44] VITALS: BP 160/85; O2SAT 100
[2024-07-07 18:51] LABS: MEAN CELL VOLUME 87.4 fL (80.0-100.00); MEAN CORPUSCULAR HEMOGLOBIN 29.2 pg (27.00-32.0); MEAN CORPUSCULAR HGB CONC 33.6 g/dl (32.0-36.0); PLATELET COUNT 149 K/uL (150-450); RED BLOOD COUNT 2.97 M/uL (4.00-6.00); RED CELL DISTRIBUTION WIDTH 15.1 % (11.5-14.5)
[2024-07-07 18:52] LABS: HEMOGLOBIN 8.7 g/dL (13-16.00)
[2024-07-07] MEDS ORDERED: AMINOCAPROIC ACID 250 MG/ML VIAL IV STA (19:04)
[2024-07-07 19:05] LABS: a:g ratio 0.4 (0.7-1.7); alpha 1 g 0.5 g/dL (0.0-0.4); alpha 2 0.4 g/dL (0.4-1.0); beta g 3.4 g/dL (0.7-1.3); gamma g 0.8 g/dL (0.4-1.8); globulin t 5.1 g/dL (2.2-3.9); m spike 2.7 g/dL (Not Observed); prot total 7.1 g/dL (6.0-8.5)
[2024-07-07] MEDS ORDERED: ALPRAzolam 0.5 MG TABLET PO SCH (21:00)
[2024-07-07] MEDS ORDERED: fentaNYL CITRATE 50 MCG/ML AMPUL IV PUSH ONE (21:15)
[2024-07-07] MEDS ORDERED: ONDANSETRON HCL 2 MG/ML VIAL IV PRN (22:00)
[2024-07-07] MEDS ORDERED: NALOXONE HCL 0.4 MG/ML AMPUL IV PRN (22:00)
[2024-07-07] MEDS ORDERED: GABAPENTIN 300 MG CAPSULE PO SCH (22:00)
[2024-07-07 23:11] VITALS: BP 130/85; O2SAT 97
[2024-07-07 23:43] LABS: TP PLEURAL FLUID 4.3 g/dl
[2024-07-07] MEDS ORDERED: SODIUM BICARBONATE 1 MEQ/ML DISP.SYRIN 50ML IV ONE (23:45)
[2024-07-07] MEDS ORDERED: NOREPINEPHRINE BITARTRATE 8 MG in DEXTROSE 5 % IN WATER 250 ML IV SCH (23:45)
[2024-07-07] MEDS ORDERED: EPINEPHRINE HCL/PF 1 MG/ML AMPUL IV PUSH ONE (23:45)
[2024-07-07] MEDS ORDERED: ATROPINE SULFATE 0.1 MG/ML DISP.SYRIN IV ONE (23:45)
[2024-07-08] MEDS ORDERED: EPINEPHRINE HCL/PF 1 MG/ML AMPUL SUBCUTANEO SCH (00:15)
[2024-07-08] MEDS ORDERED: NOREPINEPHRINE BITARTRATE 8 MG in DEXTROSE 5 % IN WATER 250 ML IV SCH (00:30)
[2024-07-08 00:41] LABS: MONONUCLEAR 51 %; PLEURAL FLUID APPEARANCE CLOUDY; PLEURAL FLUID COLOR RED-BLOODY; POLYMORPHONUCLEAR 49 %
== END 2024-07-08 00:30 | disposition expired | DRG 982 ==
LOC: ER 18:10 → ICU 05-30 13:14 → SEC-K 05-30 13:14 → MEDJ 05-30 13:14 → SURG 05-30 13:14 → ICU 06-05 13:50 → MEDJ 06-16 20:57
PROVIDERS: General Practice; Internal Medicine Hematology & Oncology; Internal Medicine Infectious Disease; Radiology Vascular & Interventional Radiology; ADMIT Internal Medicine; ATTEND Internal Medicine
PROC: BW21YZZ Computerized Tomography (CT Scan) of Abdomen and Pelvis using Other Contrast (ICD-10-PCS; 2024-05-29)
PROC: 30233N1 Transfusion of Nonautologous Red Blood Cells into Peripheral Vein, Percutaneous Approach (ICD-10-PCS; 2024-05-30)
PROC: 30233D1 Transfusion of Nonautologous Pathogen Reduced Cryoprecipitated Fibrinogen Complex into Peripheral Vein, Percutaneous Approach (ICD-10-PCS; 2024-05-30)
PROC: 30233L1 Transfusion of Nonautologous Fresh Plasma into Peripheral Vein, Percutaneous Approach (ICD-10-PCS; 2024-05-30)
PROC: 30233K1 Transfusion of Nonautologous Frozen Plasma into Peripheral Vein, Percutaneous Approach (ICD-10-PCS; 2024-05-30)
PROC: 0JDG0ZZ Extraction of Right Lower Arm Subcutaneous Tissue and Fascia, Open Approach (ICD-10-PCS; 2024-05-31)
PROC: 2W1CX6Z Compression of Right Lower Arm using Pressure Dressing (ICD-10-PCS; 2024-05-31)
PROC: [UNRECOGNIZED PROCEDURE] (2024-05-31)
PROC: 0W9830Z Drainage of Chest Wall with Drainage Device, Percutaneous Approach (ICD-10-PCS; 2024-06-03)
PROC: 02HV33Z Insertion of Infusion Device into Superior Vena Cava, Percutaneous Approach (ICD-10-PCS; 2024-06-04)
PROC: 05HM33Z Insertion of Infusion Device into Right Internal Jugular Vein, Percutaneous Approach (ICD-10-PCS; 2024-06-05)
PROC: 30233R1 Transfusion of Nonautologous Platelets into Peripheral Vein, Percutaneous Approach (ICD-10-PCS; 2024-06-07)
PROC: 0WQ80ZZ Repair Chest Wall, Open Approach (ICD-10-PCS; 2024-06-07)
PROC: 05PY03Z Removal of Infusion Device from Upper Vein, Open Approach (ICD-10-PCS; principal; 2024-06-11)
PROC: 4A12X4Z Monitoring of Cardiac Electrical Activity, External Approach (ICD-10-PCS; 2024-06-16)
PROC: 02PY33Z Removal of Infusion Device from Great Vessel, Percutaneous Approach (ICD-10-PCS; 2024-06-21)
PROC: BW28ZZZ Computerized Tomography (CT Scan) of Head (ICD-10-PCS; 2024-06-27)
PROC: BW24ZZZ Computerized Tomography (CT Scan) of Chest and Abdomen (ICD-10-PCS; 2024-06-30)
PROC: BW21YZZ Computerized Tomography (CT Scan) of Abdomen and Pelvis using Other Contrast (ICD-10-PCS; 2024-06-30)
PROC: BH4BZZZ Ultrasonography of Chest Wall (ICD-10-PCS; 2024-07-01)
PROC: 0JDG0ZZ Extraction of Right Lower Arm Subcutaneous Tissue and Fascia, Open Approach (ICD-10-PCS; 2024-07-07)
PROC: 0BH17EZ Insertion of Endotracheal Airway into Trachea, Via Natural or Artificial Opening (ICD-10-PCS; 2024-07-07)
PROC: 5A1935Z Respiratory Ventilation, Less than 24 Consecutive Hours (ICD-10-PCS; 2024-07-07)
PROC: 0W993ZX Drainage of Right Pleural Cavity, Percutaneous Approach, Diagnostic (ICD-10-PCS; 2024-07-07)
DX: D62 Acute posthemorrhagic anemia (principal); D68.00 Von Willebrand disease, unspecified; N39.0 Urinary tract infection, site not specified; R78.81 Bacteremia; M60.000 Infective myositis, unspecified right arm; D68.9 Coagulation defect, unspecified; T81.31XA Disruption of external operation (surgical) wound, not elsewhere classified, initial encounter; I46.9 Cardiac arrest, cause unspecified; R41.82 Altered mental status, unspecified; R00.0 Tachycardia, unspecified; I10 Essential (primary) hypertension; R31.0 Gross hematuria; E87.6 Hypokalemia; D69.6 Thrombocytopenia, unspecified; F43.21 Adjustment disorder with depressed mood; R22.2 Localized swelling, mass and lump, trunk; Z92.21 Personal history of antineoplastic chemotherapy
CPT/HCPCS: 71555